=== PATIENT | female | born 1970 | race Caucasian/White ===

== ENCOUNTER → 2016-12-25 | Day surgery (SDC) | payer BC ==
[~2016-12-25] VITALS: Ht 162.6 cm; Wt 52.2 kg
[~2016-12-25] MED LIST: SYNTHROID75 MCG PO; THERA-VITE W/ B1 TAB PO; TRIVORA-28 TAB1 EACH PO
== END | disposition disaster alternative care site (69) ==
LOC: GPOC 12-22 09:00 → GEND 08:02 → GPOC 09:00
PROC: 0DJD8ZZ Inspection of Lower Intestinal Tract, Via Natural or Artificial Opening Endoscopic (ICD-10-PCS; principal; 2016-12-25)
DX: K57.30 Diverticulosis of large intestine without perforation or abscess without bleeding (principal); K92.1 Melena; E05.00 Thyrotoxicosis with diffuse goiter without thyrotoxic crisis or storm; Z79.899 Other long term (current) drug therapy
CPT/HCPCS: J2001; J7030